=== PATIENT | female | born 1955 | race Caucasian/White ===

== ENCOUNTER → 2018-12-28 | Outpatient (CLI) | payer OTHER, MEDICAID ==
[2018-12-28] MEDS: SOD CHLORIDE 0.9% 100 ML (14:24)
[2018-12-28] MEDS: IOHEXOL 300MG/ML 150 ML BTL (14:25)
== END | disposition home or self-care (01) ==
LOC: C/S 12:21
DX: N39.0 Urinary tract infection, site not specified (principal)
CPT/HCPCS: 74178